=== PATIENT | female | born 2000 | race Caucasian/White ===

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

== ENCOUNTER 2018-01-11 11:23 | Emergency (ER) | payer OTHER ==
[2018-01-11 11:30] VITALS: BP 123/96
--- NOTE | 2018-01-11 12:20 | EDPHY ---
H & P Time Seen by Provider: 01/11/18 11:41 HPI/ROS: CHIEF COMPLAINT: Sore throat HISTORY OF PRESENT ILLNESS: Patient has multiple episodes of recurrent tonsillitis. She was seen Saturday this week at the [facility] after having sore throat for 2 days. She was started on prednisone at 40 mg a day for 2 days and started on penicillin on 2 days ago. She presented today to [facility] with sore throat and was referred here. Sore throat is mild to moderate, worse at night with a difficulty last night that she had some trouble breathing. She is still able to swallow oral fluids. She has some left ear pain associated. REVIEW OF SYSTEMS: Eye: no change in vision ENT: HPI Cardiac: [no chest pain Abdomen: no vomiting, diarrhea, abdominal pain Musculoskeletal: No neck stiffness Skin: no rash Neuro: no headache Constitutional: no fever : no urinary symptoms A comprehensive 10 point review of systems is otherwise negative aside from elements mentioned in the history of present illness. PAST MEDICAL HISTORY: Includes tonsillitis and left knee surgery Social history: [employer] student General Appearance: Alert and conversant, cooperative. Eyes: No scleral icterus. ENT, Mouth: Normal tympanic meds bilaterally. Patient has swollen tonsils but uvula is midline and there is no stridor or drooling and no peritonsillar mass or fluctuance. No trismus. Floor of the mouth is soft. No gum swelling. No stridor or drooling. Respiratory: Normal respiratory effort, breath sounds equal, lungs are clear to auscultation. Cardiovascular: Regular rate and rhythm. Patient is able to speak in full sentences, normal range of motion of the neck, does not appear to have acute airway compromise. Does not look septic or toxic. Emergency Department course/MDM: Patient presents with recurrent tonsillitis but I do not appreciate any high suspicion for airway obstruction, deep space abscess, acute surgical problem. Will change her to Augmentin and dexamethasone, she has ENT follow-up on Saturday. Smoking Status: Never smoked Constitutional: Initial Vital Signs Temperature (C) 37 C 01/11/18 11:27 Heart Rate 103 H 01/11/18 11:27 Respiratory Rate 16 01/11/18 11:27 Blood Pressure 123/96 H 01/11/18 11:27 O2 Sat (%) 97 01/11/18 11:27 O2 Delivery Mode Room Air Allergies/Adverse Reactions: No Known Allergies Allergy (Verified 01/11/18 11:26) Home Medications: Medication Instructions Recorded Amoxicillin/Clavulanate Pot 875 mg PO BID #20 tab 01/11/18 [Augmentin 875 mg tab] Dexamethasone [Decadron 4 MG (*)] 4 mg PO Q12 #10 tab 01/11/18 Hydrocodone/Acetaminophen [Vicodin 1 each PO Q6 #7 tablet 01/11/18 5-300 mg Tablet] Ibuprofen 01/11/18 Penicillin V Potassium 01/11/18 MDM/Departure - Depart Disposition: Home, Routine, Self-Care Clinical Impression: Acute tonsillitis Qualifiers: Pharyngitis/tonsillitis etiology: unspecified etiology Qualified Code(s): J03.90 - Acute tonsillitis, unspecified Condition: Good Instructions: Tonsillitis (ED) Additional Instructions: Follow-up with ENT on Saturday. Return if you have trouble breathing or unable to swallow or high fever or worsening or severe pain. Stop taking penicillin and prednisone. Prescriptions: Amoxicillin/Clavulanate Pot [Augmentin 875 mg tab] 875 mg PO BID #20 tab Dexamethasone [Decadron 4 MG (*)] 4 mg PO Q12 #10 tab Hydrocodone/Acetaminophen [Vicodin 5-300 mg Tablet] 1 each PO Q6 #7 tablet Referrals: Jhoana Lomax, MYA [Physician [employer]] - As per Instructions Shekhar Reddy MD [Medical Doctor] - As per Instructions
== END 2018-01-11 12:44 | disposition home or self-care (01) ==
DX: J03.90 Acute tonsillitis, unspecified (principal)